=== PATIENT | female | born 1970 | race Caucasian/White ===

== ENCOUNTER → 2017-09-08 07:11 | Outpatient (CLI) | payer OTHER, SELFPAY ==
--- NOTE | 2017-09-08 | IMM_PTH ---
PATIENT: NENITA GODFREY LOC: [facility] U#:[id number] AGE/SX: 54/F ROOM: RE09/08/[address]: Dr. Kenton Sharif MD : 1970 BED: DIS: SPEC #: [id number] RECD: 09/09/17 11:11 STATUS: DEVANG KALEB #: [id number] WALKER: 09/08/17 00:[address]: Kenton Sharif DEPT: IMMUNOHISTOCHEMISTRY RECD BY: Carrillo Oshea ENTERED: 09/09/17 11:12 SP TYPE: IMMUNO OTHR DR: Out of Town Doctor Tissues: Right breast, NOS Procedures: Calponin-1(initial) P40 (add) PHYSICIAN & INSTITUTION [place] [id number] SPECIMEN INFORMATION: Tissue Source: Right breast Clinical Info: Microcalcifications, outer central right breast Specimen Number: [id number] CPT code: 15913, 27280 METHODOLOGY: Deparaffinized sections of prefer/formalin-fixed tissue or PAP/DQ stained slides are incubated with monoclonal/polyclonal antibodies/oligonucleotide probes. Localization is made via biotin free immunoperoxidase method. Appropriate controls are performed and reacted as expected. Results on target cell population are indicated in the following table: RESULTS: ANTIBODY / CLONE RESULT P40 (BC28) positive Calponin-1 (FL657R) positive These tests were developed and their performance characteristics determined by [facility]. They may not have been cleared or approved by the U.S. Food and Drug Administration. The FDA has determined that such clearance or approval is not necessary. INTERPRETATION: Right breast, needle core biopsy: Negative for malignancy. SJ:annabelle 09/10/17
--- NOTE | 2017-09-08 | BRBX_PTH ---
PATIENT: NENITA GODFREY LOC: [facility] U#:[id number] AGE/SX: 54/F ROOM: RE09/08/[address]: Dr. Kenton Sharif MD : 1970 BED: DIS: SPEC #: [id number] RECD: 09/08/17 14:01 STATUS: DEVANG KALEB #: [id number] WALKER: 09/08/17 00:[address]: Kenton Sharif DEPT: SURGICAL PATHOLOGY RECD BY: Dilip Pitt ENTERED: 09/08/17 14:02 SP TYPE: BREAST BX OTHR DR: Out of Town Doctor Tissues: Right breast, NOS Procedures: Surgery Specimen Level IV HEADER OPERATION: Right breast stereotactic needle core biopsy PRE-OP DIAGNOSIS: Microcalcifications outer central right breast TISSUE SUBMITTED: Right breast ISCHEMIC TIME: 2 minutes FIXATION TIME: 10 hours MICROSCOPIC DIAGNOSIS Right breast, outer central microcalcifications, stereotactic needle core biopsy: Fibrocystic changes, adenosis and intraductal hyperplasia with multifocal atypia. Frequent microcalcifications. Negative for malignancy. See comment. ZURDO:annabelle 09/09/17 COMMENT Immunohistochemistry ([id number]) supports the above diagnosis. Case has been reviewed in consultation with Dr. Bentley who concurs with the above diagnosis. IDC:AM MICROSCOPIC DESCRIPTION Slides are reviewed. GROSS DESCRIPTION Received in fixative is one container labeled with the patient's name and designated right breast. The specimen consists of multiple elongated fragments of go-yellow fibroadipose tissue that in aggregate measure 6 x 3 x 0.3 cm. The entire specimen is submitted in three cassettes. / ZURDO:annabelle 09/08/17 TC:5 CPT: 51418
--- NOTE | 2017-09-08 21:30 | PCM.OPRPT ---
Report of Operation Date of Procedure: 09/08/17 Pre-Operative Diagnosis: right breast microcalcifications Post-Operative Diagnosis: right breast microcalcifications - successful biopsy Surgery/Procedure Performed:: right stereotactic breast biopsy using 8-gauge vacuum-assisted core needle biopsy, specimen radiograph, gel marker placement screen printing machine operator: None Type of Anesthesia:: Local Specimen's removed: right breast Description of Procedure: The patient was brought to the stereotactic suite and informed of the plan course of events. The right breast was positioned in the true lateral to medial position on the [place] stereotactic table. Mammographic image demonstrated the area of abnormality to be located in the center of the radiograph. Stereotactic images were then obtained which demonstrated good positioning of the abnormality for biopsy with good stroke gwendolyn parameters. The breast was cleaned with Betadine area did one percent lidocaine was used to anesthetize the skin and a small stab incision made. An 8-gauge mammotome needle was placed into the pre-fire position. Stereotactic images demonstrated good positioning around the planned biopsy site. Local anesthetic injected deeply in the breast. The needle was deployed. Post deployment images demonstrated good positioning of the planned biopsy site. Multiple vacuum-assisted samples were obtained and nbmxhe-cbc-atlvg fashion. Specimen radiograph demonstrated micro-calcifications in the sample. A gel marker clip was deployed. Post biopsy images demonstrated good position of the clip relative the biopsy cavity. The breast was removed from compression. Steri-Strips and a dressing applied. Post procedure mammogram images were obtained.
--- NOTE | 2017-09-08 21:33 | OP.PCM_ITS ---
Report of Operation Date of Procedure: 09/08/17 Pre-Operative Diagnosis: right breast microcalcifications Post-Operative Diagnosis: right breast microcalcifications - successful biopsy Surgery/Procedure Performed:: right stereotactic breast biopsy using 8-gauge vacuum-assisted core needle biopsy, specimen radiograph, gel marker placement prepress operator: None Type of Anesthesia:: Local Specimen's removed: right breast Description of Procedure: The patient was brought to the stereotactic suite and informed of the plan course of events. The right breast was positioned in the true lateral to medial position on the [place] stereotactic table. Mammographic image demonstrated the area of abnormality to be located in the center of the radiograph. Stereotactic images were then obtained which demonstrated good positioning of the abnormality for biopsy with good stroke gwendolyn parameters. The breast was cleaned with Betadine area did one percent lidocaine was used to anesthetize the skin and a small stab incision made. An 8-gauge mammotome needle was placed into the pre-fire position. Stereotactic images demonstrated good positioning around the planned biopsy site. Local anesthetic injected deeply in the breast. The needle was deployed. Post deployment images demonstrated good positioning of the planned biopsy site. Multiple vacuum- assisted samples were obtained and qbdvlc-upp-lcfoh fashion. Specimen radiograph demonstrated micro-calcifications in the sample. A gel marker clip was deployed. Post biopsy images demonstrated good position of the clip relative the biopsy cavity. The breast was removed from compression. Steri- Strips and a dressing applied. Post procedure mammogram images were obtained.
== END ==
PROVIDERS: Visit Provider Surgery
DX: R92.0 Mammographic microcalcification found on diagnostic imaging of breast (principal)
CPT/HCPCS: 19081; 88305; 88341; 88342; J7050

== ENCOUNTER 2017-11-05 11:02 | Day surgery (SDC) | payer BC, SELFPAY ==
--- NOTE | 2017-11-05 | BRBX_PTH ---
PATIENT: NENITA GODFREY LOC: [facility] [place] U#:[id number] AGE/SX: 47/F ROOM: RE11/05/[address]: Dr. Kenton Sharif MD : 1970 BED: DIS: 11/05/2017 SPEC #: [id number] RECD: 11/05/17 14:44 STATUS: DEVANG KALEB #: [id number] WALKER: 11/05/17 00:[address]: Kenton Sharif DEPT: SURGICAL PATHOLOGY RECD BY: Erica Foster ENTERED: 11/05/17 15:10 SP TYPE: BREAST BX OTHR DR: Out of Town Doctor Tissues: Right breast, NOS Procedures: Surgery Specimen Level V HEADER OPERATION: Breast lumpectomy NL PRE-OP DIAGNOSIS: Fibrocystic changes, adenosis and intraductal hyperplasia with multifocal atypia TISSUE SUBMITTED: Right breast lumpectomy tissue, wire lateral to medial, suture superficial ISCHEMIC TIME: 30 minutes FIXATION TIME: 29 hours MICROSCOPIC DIAGNOSIS Right breast, needle localization lumpectomy: Fibrocystic changes, adenosis and intraductal hyperplasia with focal atypia. Changes consistent with previous biopsy site. Focal microcalcification. Negative for malignancy. ZURDO:annabelle 11/11/17 COMMENT Please make reference to previous specimen ([id number]) right breast, outer central microcalcifications, stereotactic needle core biopsy with diagnosis of fibrocystic changes, adenosis and intraductal hyperplasia with multifocal atypia. Case has been reviewed in consultation with Dr. Bentley who concurs with the above diagnosis. IDC:AM MICROSCOPIC DESCRIPTION Slides are reviewed. GROSS DESCRIPTION Received fresh for OR consultation labeled with the patient's name is a specimen designated right breast lumpectomy. The specimen consists of an oriented fragment of go-yellow fibrofatty tissue measuring 3.5 x 3 x 1.5 cm. The specimen is differentially inked as follows: anterior ? yellow, posterior ? black, superior ? blue, inferior ? green, medial ? red and lateral ? orange. The specimen weighs 6 gm. The specimen radiograph demonstrates a metallic tracer clip. The specimen is wire guided. The specimen is serially sectioned to reveal an irregular fibrous/gelatinous region measuring 1 cm in greatest dimension. This lesion extends to the inked inferior margin of excision. The information is conveyed to the surgeon intraoperatively. The specimen is serially and totally submitted in six cassettes after infusion cycle. / AM:annabelle 11/05/17 TC:5 CPT: 34398, 95225
--- NOTE | 2017-11-05 08:29 | PCM.HP.BLA ---
History and Physical Date of Admission: 11/05/17 HISTORY AND PHYSICAL - BREAST COMPLAINT ? Giuliana Castanon 1970 ? ? REFERRING PHYSICIAN: ~~ ? CHIEF COMPLAINT: ~~Right breast microcalcifications ? HPI: Giuliana is a patient I am following for right breast microcalcifications. ? ? The patient is a 47 year old female with a complaint of an abnormal mammogram. ?The patient had a mammogram on July 16, 2017 with follow-up compression diagnostic mammograms and bilateral ultrasounds on July 29, 2017 which demonstrated: ? IMPRESSION: SUSPICIOUS OF MALIGNANCY The asymmetry in the right breast central to the nipple anterior depth is indeterminate. The asymmetry in the right breast at 11 o'clock middle depth is indeterminate. ?An ultrasound is recommended. The cluster of calcifications in the right breast central to the nipple middle depth is at an intermediate suspicion for malignancy. ?A stereotactic biopsy is recommended. SUMMARY: 1 Recommend Biopsy microcalcifications RIGHT side 2. ?Bilateral benign cysts in each breast correspond to the areas of nodularity. ? The patient denies a history of breast masses but notes the history of bilateral breast cysts, including previous aspirations. ?She does ?perform a self breast exam routinely. ?She notes no skin changes. ?She denies nipple discharge. ?She notes no axillary masses. ?She notes no family history of breast problems. ?She notes no significant breast trauma or breast difficulties in the past. ? The patient has had 2 pregnancies. ??Her last mammogram was 2013. ? ? I performed a right side Stereotactic guided core?biopsy for her abnormal mammogram on September 08, 2017. ? ? The pathology returned as: ? ?Right breast, outer central microcalcifications, stereotactic needle core biopsy: ?Fibrocystic changes, adenosis and intraductal hyperplasia with multifocal atypia. ?Frequent microcalcifications. ?Negative for malignancy. ? See comment. ? PAST MEDICAL HISTORY PAST MEDICAL HISTORY Diagnosis Date PM - PAST MEDICAL HISTORY OF 1997 ? colitis, colonoscopy 1997 Ulcerative colitis ? ? ? PAST SURGICAL HISTORY PAST SURGICAL HISTORY Procedure Laterality Date BREAST BIOPSY Right 09/08/2017 ? Dr. Sharif CERVIX UTERI CONIZA LP ELCTRO EXCI ? 1994 ? LEEP COLONOSCOPY ? January 2009 LIGATE FALLOPIAN TUBE ? ? PAST SURGICAL HISTORY OF ? 2011 ? PPV/FGX/IVK/REMOVAL OF SILICONE OIL OD (25 GAUGE REMV CATARACT EXTRACAP,INSERT LENS ? 2011 ? Cataract Extraction with PC IOL ~Right eye REPAIR DETACD RETINA,INJECT AIR/GAS ? 04/08/12 ? Pneumatic Retinopexy right eye REPAIR DETACD RETINA,INJECT AIR/GAS ? 01/23/11 ? Pneumatic Retinopexy right eye VITRECTOMY,MECHANICAL ? 01/09/11 ? PPV (Pars Plana Vitrectomy) right eye ? ? CURRENT MEDICATIONS ? Current Outpatient Prescriptions: citalopram (CELEXA) 20 mg tablet Take 1 tablet by mouth once daily. Disp: 30 tablet Rfl: 10 hydrOXYzine pamoate (VISTARIL) 25 mg capsule Take 1 capsule by mouth three times daily as needed. Disp: 30 capsule Rfl: 1 levonorgestrel (MIRENA) 20 mcg/24 hr (5 years) IUD 1 Each by INTRAUTERINE route continuous. Disp: 1 Each Rfl: 0 ? No current facility-administered medications for this visit. ? ALLERGIES: Patient has no known allergies. ? PERSONAL HISTORY: SOCIAL HISTORY Social History ~~Marital status: ~~~~~~~~~~~~Spouse name: Keo Castanon ~~~ ~~Years of education: 12 ~~~~~~~~~~~~~Number of children: 2 ~~~~~~~~ ? 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 Social History Main Topics ~~Smoking status: Former Smoker ~~~~~~~~~~~~~~~~~~~~~~~~~~~~~~~~~~~~~~~~~~~~~~~~~~~~~~~~ ~~~~~Packs/day: 0.00 ~~~~~Years: 0.00 ~~~ ~~~~~Quit date: 12/29/2000 ~~Smokeless tobacco: Never Used ~~~~~~~~~~~~~~~~~~~ ~~Alcohol use: Yes ~~~~~~~~ ~~~~~Comment: Socially ~~Drug use: No ~~~~~~~~~ ~~Sexual activity: Yes ~~~~~~~~~~~~~~Partners with: Male ~~~~~ control/protection: Tubal Ligation ? ? FAMILY HISTORY: FAMILY HISTORY FAMILY HISTORY Problem Relation Age of Onset Hypertension Father ? Diabetes Maternal Grandmother ? Diabetes Paternal Grandmother ? ? REVIEW OF SYMPTOMS: negative except as noted above ~ PHYSICAL EXAMINATION: ? General: ~The patient is 47 year old female, well nourished, well hydrated in no acute distress. ~The patient is oriented to time, place, and person. ? VITALS: There were no vitals taken for this visit.~There is no height or weight on file to calculate BMI.~ ? HEENT: ~Normal cephalic, ataumatic, pupils are equally round, sclera are anicteric, mucous membranes are moist, oropharynx is clear. ~Neck has no masses, asymmetry or lymphadenopathy. ~Thyroid is unremarkable. ? Respiratory: ~Clear to auscultation and percussion. ~Normal respiratory excursion and pattern. ? Cardiac: ~Examination is regular rate and rhythm. ? Abdominal exam: ~Soft, nontender, ~with no palpable masses. ~No hepatosplenomegaly. ~No palpable hernias. ? Rectal exam: ~exam deferred Extremities: ~no clubbing, cyanosis or edema. ~No adenopathy. ? Breast: ~Visual inspection reveals no retractions, nipple inversion, or skin changes. ~Palpation of the right breast reveals no dominant or suspicious masses. ~Palpation of the left breast reveals no dominant or suspicious masses. ~Axillary exam demonstrates no suspicious masses in either the left or right axilla. ~There is no nipple discharge expressed from either the left or right breast. ? LABORATORY VALUES: As Noted ? RADIOLOGIC STUDIES: ~As Noted ? Assessment ~ IMPRESSION: Right breast intraductal hyperplasia with multifocal atypia ? PLAN: ~I plan to perform a right breast needle localization excisional breast biopsy. ~The planned surgical procedure was discussed extensively with the patient. ~The risks, benefits, anticipated outcomes and possible complications were mentioned. ~My staff has also explained the procedure in understandable terms and the patient was given the option to take printed material concerning the planned procedure. ~The patient had the opportunity to ask questions concerning the planned procedure. ~The patient freely consents to the planned procedure. ~~~ ? Anticipated Surgical Procedure/ CPT Code: right preoperative stereotactic guided needle placement - 96575~EXCISIONAL BREAST BIOPSY - 09480-563 ? Anticipated Anesthetic: General ? Patient weight: ~There were no vitals taken for this visit.~~~~BMI: ~There is no height or weight on file to calculate BMI. ? Planned antibiotic: Ancef 2gm IVPB television cabinet finisher to OR ? SCDs needed - Yes ? Dietary Aide Cook Needed - Yes ~~ ? Diagnoses: (R92.0) Mammographic microcalcification found on diagnostic imaging of breast ~(primary encounter diagnosis) ? ? ? ~~~~ Return to Clinic: The patient is instructed to follow-up with me 1 week post operatively. ? Kenton Sharif MD
--- NOTE | 2017-11-05 08:50 | HP.PCM_ITS ---
History and Physical Date of Admission: 11/05/17 HISTORY AND PHYSICAL - BREAST COMPLAINT ? Giuliana Castanon 1970 ? ? REFERRING PHYSICIAN: ~~ ? CHIEF COMPLAINT: ~~Right breast microcalcifications ? HPI: Giuliana is a patient I am following for right breast microcalcifications. ? ? The patient is a 47 year old female with a complaint of an abnormal mammogram. ? The patient had a mammogram on July 16, 2017 with follow-up compression diagnostic mammograms and bilateral ultrasounds on July 29, 2017 which demonstrated: ? IMPRESSION: SUSPICIOUS OF MALIGNANCY The asymmetry in the right breast central to the nipple anterior depth is indeterminate. The asymmetry in the right breast at 11 o'clock middle depth is indeterminate. ?An ultrasound is recommended. The cluster of calcifications in the right breast central to the nipple middle depth is at an intermediate suspicion for malignancy. ?A stereotactic biopsy is recommended. SUMMARY: 1 Recommend Biopsy microcalcifications RIGHT side 2. ?Bilateral benign cysts in each breast correspond to the areas of nodularity. ? The patient denies a history of breast masses but notes the history of bilateral breast cysts, including previous aspirations. ?She does ?perform a self breast exam routinely. ?She notes no skin changes. ?She denies nipple discharge. ?She notes no axillary masses. ?She notes no family history of breast problems. ?She notes no significant breast trauma or breast difficulties in the past. ? The patient has had 2 pregnancies. ??Her last mammogram was 2013. ? ? I performed a right side Stereotactic guided core?biopsy for her abnormal mammogram on September 08, 2017. ? ? The pathology returned as: ? ?Right breast, outer central microcalcifications, stereotactic needle core biopsy: ?Fibrocystic changes, adenosis and intraductal hyperplasia with multifocal atypia. ?Frequent microcalcifications. ?Negative for malignancy. ? See comment. ? PAST MEDICAL HISTORY PAST MEDICAL HISTORY Diagnosis Date ? PMH - PAST MEDICAL HISTORY OF 1997 ? colitis, colonoscopy 1997 ? Ulcerative colitis ? ? ? PAST SURGICAL HISTORY PAST SURGICAL HISTORY Procedure Laterality Date ? BREAST BIOPSY Right 09/08/2017 ? Dr. Sharif ? CERVIX UTERI CONIZA LP ELCTRO EXCI ? 1994 ? LEEP ? COLONOSCOPY ? January 2009 ? LIGATE FALLOPIAN TUBE ? ? ? PAST SURGICAL HISTORY OF ? 2011 ? PPV/FGX/IVK/REMOVAL OF SILICONE OIL OD (25 GAUGE ? REMV CATARACT EXTRACAP,INSERT LENS ? 2011 ? Cataract Extraction with PC IOL ~Right eye ? REPAIR DETACD RETINA,INJECT AIR/GAS ? 04/08/12 ? Pneumatic Retinopexy right eye ? REPAIR DETACD RETINA,INJECT AIR/GAS ? 01/23/11 ? Pneumatic Retinopexy right eye ? VITRECTOMY,MECHANICAL ? 01/09/11 ? PPV (Pars Plana Vitrectomy) right eye ? ? CURRENT MEDICATIONS ? Current Outpatient Prescriptions: citalopram (CELEXA) 20 mg tablet Take 1 tablet by mouth once daily. Disp: 30 tablet Rfl: 10 hydrOXYzine pamoate (VISTARIL) 25 mg capsule Take 1 capsule by mouth three times daily as needed. Disp: 30 capsule Rfl: 1 levonorgestrel (MIRENA) 20 mcg/24 hr (5 years) IUD 1 Each by INTRAUTERINE route continuous. Disp: 1 Each Rfl: 0 ? No current facility-administered medications for this visit. ? ALLERGIES: Patient has no known allergies. ? PERSONAL HISTORY: SOCIAL HISTORY Social History ~~Marital status: ~~~~~~~~~~~~Spouse name: Keo Castanon ~~~ ~~Years of education: 12 ~~~~~~~~~~~~~Number of children: 2 ~~~~~~~~ ? 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 Social History Main Topics ~~Smoking status: Former Smoker ~~~~~~~~~~~~~~~~~~~~~~~~~~~~~~~~~~~~~~~~~~~~~~~~ ~~~~~~~~ ~~~~~Packs/day: 0.00 ~~~~~Years: 0.00 ~~~ ~~~~~Quit date: 12/29/2000 ~~Smokeless tobacco: Never Used ~~~~~~~~~~~~~~~~~~~ ~~Alcohol use: Yes ~~~~~~~~ ~~~~~Comment: Socially ~~Drug use: No ~~~~~~~~~ ~~Sexual activity: Yes ~~~~~~~~~~~~~~Partners with: Male ~~~~~ control/protection: Tubal Ligation ? ? FAMILY HISTORY: FAMILY HISTORY FAMILY HISTORY Problem Relation Age of Onset ? Hypertension Father ? ? Diabetes Maternal Grandmother ? ? Diabetes Paternal Grandmother ? ? REVIEW OF SYMPTOMS: negative except as noted above ~ PHYSICAL EXAMINATION: ? General: ~The patient is 47 year old female, well nourished, well hydrated in no acute distress. ~The patient is oriented to time, place, and person. ? VITALS: There were no vitals taken for this visit.~There is no height or weight on file to calculate BMI.~ ? HEENT: ~Normal cephalic, ataumatic, pupils are equally round, sclera are anicteric, mucous membranes are moist, oropharynx is clear. ~Neck has no masses , asymmetry or lymphadenopathy. ~Thyroid is unremarkable. ? Respiratory: ~Clear to auscultation and percussion. ~Normal respiratory excursion and pattern. ? Cardiac: ~Examination is regular rate and rhythm. ? Abdominal exam: ~Soft, nontender, ~with no palpable masses. ~No hepatosplenomegaly. ~No palpable hernias. ? Rectal exam: ~exam deferred Extremities: ~no clubbing, cyanosis or edema. ~No adenopathy. ? Breast: ~Visual inspection reveals no retractions, nipple inversion, or skin changes. ~Palpation of the right breast reveals no dominant or suspicious masses. ~Palpation of the left breast reveals no dominant or suspicious masses. ~Axillary exam demonstrates no suspicious masses in either the left or right axilla. ~There is no nipple discharge expressed from either the left or right breast. ? LABORATORY VALUES: As Noted ? RADIOLOGIC STUDIES: ~As Noted ? Assessment ~ IMPRESSION: Right breast intraductal hyperplasia with multifocal atypia ? PLAN: ~I plan to perform a right breast needle localization excisional breast biopsy. ~The planned surgical procedure was discussed extensively with the patient. ~The risks, benefits, anticipated outcomes and possible complications were mentioned. ~My staff has also explained the procedure in understandable terms and the patient was given the option to take printed material concerning the planned procedure. ~The patient had the opportunity to ask questions concerning the planned procedure. ~The patient freely consents to the planned procedure. ~~~ ? Anticipated Surgical Procedure/ CPT Code: right preoperative stereotactic guided needle placement - 38273~EXCISIONAL BREAST BIOPSY - 39635-106 ? Anticipated Anesthetic: General ? Patient weight: ~There were no vitals taken for this visit.~~~~BMI: ~There is no height or weight on file to calculate BMI. ? Planned antibiotic: Ancef 2gm IVPB consumer electronics merchandiser to OR ? SCDs needed - Yes ? Conduit Cleaner Needed - Yes ~~ ? Diagnoses: (R92.0) Mammographic microcalcification found on diagnostic imaging of breast ~(primary encounter diagnosis) ? ? ? ~~~~ Return to Clinic: The patient is instructed to follow-up with me 1 week post operatively. ? Kenton Sharif MD
[2017-11-05 11:35] VITALS: BP 115/73; PULSE 66; RESP 18; TEMP 36.4; O2SAT 99
--- NOTE | 2017-11-05 11:38 | BI_ITS ---
SURGICAL BREAST SPECIMEN RADIOGRAPH CLINICAL: Document presence of tissue clip marker in biopsy specimen. FINDINGS: Specimen shows presence of tissue clip marker. Electronically Signed: Luther Vance MD at 15:57 EDT Tel [phone], Service support , BI/Breast Biopsy Specimen
[2017-11-05] MEDS: Cefazolin 2 GM in 0.9% Normal Saline 100 ML IV (14:29)
[2017-11-05] MEDS: Bupivacaine Mpf 0.5% 30 ML VIAL (15:00)
--- NOTE | 2017-11-05 15:06 | OP.PCM_ITS ---
Report of Operation Date of Procedure: 11/05/17 Pre-Operative Diagnosis: right breast intraductal hyperplasia with atypia Post-Operative Diagnosis: right breast intraductal hyperplasia with atypia - radiographically good margins, ?papilloma on frozen Surgery/Procedure Performed:: right stereotactic needle localization excisional breast biopsy Description of Surgical Findings:: as above barrel coater: Noelle Frias Type of Anesthesia:: General Anesthesiologist: Kodi Holbrook - ASA2 Specimen's removed: right breast mass Estimated Blood Loss (mL): 25 Fluids Replaced: 800 Description of Procedure: The patient was brought to the stereotactic suite. Her right breast was positioned in the lateral to medial approach in the [facility] stereotactic table. Mammogram image demonstrated the clip to be nicely centered. Stereotactic images were obtained. Planned placement of the wire was marked and an additional 15 mm of depth added to the prescribed depth. The breast was then cleaned with Betadine. Local anesthetic was injected in the breast and a 15 Kopan's wire was inserted to the prescribed depth. Stereotactic images demonstrated good positioning of the wire. The wire was deployed as an needle was withdrawn. Stereotactic images demonstrated good positioning of the wire. The breast was marked compression the wire cut to length and taped. CC and true lateral views were then obtained. The patient was then brought to the operative suite. Sign was performed verifying patient, site, position, SCIP antibiotic prophylaxis-2 g of Ancef and DVT prophylaxis with SCDs. Following an LMA anesthesia, the patient?s right breast, were prepped and draped in the usual fashion. Timeout was performed verifying patient, site, position. The wire entered the breast at thelateral position. An curvilinear incision was made at the nipple areolar complex. Dissection carried down. The wire was encountered. This was then freed up and brought to the incision. A lumpectomy specimen was then obtained down to the chest wall. Superior, inferior, medial and lateral to the wire based on palpation and dissection leaving approximately 1 cm of breast tissue deep to the nipple areolar complex. When the specimen was removed, the wire came from thelateral to the medial site. A solitary suture was placed on the superficial margin.sThe specimen was oriented on a radiographic plate and sent for specimen radiograph. While we?re awaiting specimen radiograph, the cavity was irrigated with sterile water and aspirated. There was noted to be good hemostasis. Subcutaneous breast tissue closed with interrupted 3-0 Vicryl suture. Skin was closed with a running 5-0 Biosyn subcuticular suture. Specimen radiograph demonstrated good position of the clip relative to the biopsy site. The specimen was then brought to the pathology department. there was felt to possibly be a papilloma in the biopsy specimen, but no suspicious areas grossly or on frozen. Given this, Dermabond was applied to the skin the patient was awakened and brought to recovery in stable condition. - Admit VTE Documentation VTE Present on Admission: No VTE Mechan Device Prophylaxis: SCD's
--- NOTE | 2017-11-05 15:08 | PCM.DCBBX ---
Discharge Diet: No Restrictions Discharge Activity: Return to Normal Activity May shower in (days): 3 Remove Dressing in (days):: 3 - Leave Dermabond in place. Allergies/Adverse Reactions: Allergies No Known Allergies Allergy (Verified 11/04/17 13:46) Medications to take at Discharge Citalopram Hydrobromide [Celexa] 20 mg PO DAILY 11/04/17 Oxycodone [Oxyir] 5 mg PO Q6H PRN PRN 7 Days #12 tab 11/05/17 The following prescriptions were given: Oxycodone [Oxyir] 5 mg PO Q6H PRN PRN 7 Days #12 tab PRN Reason: Severe Pain (6-03/25) Primary Care Physician: Rosalind Ball,Out of [Primary Care Provider] - Please Follow Up With: Kenton Sharif MD - [phone] When: Please call for an appointment to be seen in one week.
[2017-11-05 15:11] VITALS: BP 115/73; BP 123/80; PULSE 71; RESP 16; TEMP 36.5; O2SAT 99
[2017-11-05 15:15] VITALS: BP 115/73; BP 120/78; PULSE 68; RESP 16; O2SAT 100
[2017-11-05 15:30] VITALS: BP 115/73; BP 116/76; PULSE 60; RESP 16; O2SAT 99
[2017-11-05 15:44] VITALS: BP 115/73; BP 125/75; PULSE 59; RESP 16; TEMP 36.8; O2SAT 100
[2017-11-05 16:08] VITALS: BP 115/73
== END 2017-11-05 16:17 | disposition home or self-care (01) ==
LOC: SDC 11:07 → AC 11:11
PROVIDERS: Visit Provider Surgery
PROC: (CPT 19301; principal; 2017-11-05 13:30)
DX: N62 Hypertrophy of breast (principal); R92.0 Mammographic microcalcification found on diagnostic imaging of breast; F32.9 Major depressive disorder, single episode, unspecified; F41.9 Anxiety disorder, unspecified; Z87.891 Personal history of nicotine dependence
CPT/HCPCS: 00400; 19120; 19281; 76098; 88305; 88307; J7120